=== PATIENT | female | born 1930 ===

== ENCOUNTER 2020-07-08 11:08 | Emergency (ER) | payer MEDICARE, BC ==
--- NOTE | 2020-07-08 13:12 | CT ---
CT BRAIN NONCONTRAST: DATE: 07/08/2020 HISTORY: 89-year-old female status post acute head trauma from fall. FINDINGS: There is no midline shift or any other mass effect. There is no evidence of acute intracranial hemor rhage, large cortical infarct, obstructive hydrocephalus, or extraaxial fluid collection. The calvar ium is intact. There is diffuse parenchymal volume loss. There are low attenuation areas in the whi te matter. These are nonspecific, but in a patient of this age, they are probably chronic ischemic w karthikeyan matter changes due to microvascular atherosclerosis. There are multiple tiny lacunar infarcts in the bilateral deep cerebral white matter, at least most of which are probably old. IMPRESSION: 1. No acute intracranial findings. 2. Involutional changes and chronic ischemic white matter changes. jn [] POS: AH
--- NOTE | 2020-07-08 13:21 | RAD ---
3 VIEWS LEFT WRIST: Date: 07/08/2020 COMPARISON: None. HISTORY: Fall with left wrist pain. FINDINGS: Three views of the left wrist show a fracture of the distal diaphysis of the ulna. No radial fracture is seen. Surrounding soft tissue swelling is seen. Diffuse osteopenia is present. IMPRESSION: Distal ulnar fracture. POS: LOKESHA
--- NOTE | 2020-07-08 13:38 | RAD ---
TWO VIEWS OF THE LEFT FOREARM: 07/08/20 COMPARISON: None. HISTORY: Fall with left arm pain. FINDINGS: Two views of the left forearm shows a fracture of the distal aspect of the diaphysis of the ulna with overlying soft tissue swelling. No fracture of the radius is seen. No dislocation at the wrist or el bow is seen. IMPRESSION: Distal ulna fracture. POS: LOKESHA
[2020-07-08] MEDS ORDERED: Bacitracin 1 PK ONE (13:51)
--- NOTE | 2020-07-08 14:01 | CT ---
CT OF THE CERVICAL SPINE WITHOUT CONTRAST: 07/08/20 HISTORY: Fall with head trauma and neck pain. TECHNIQUE: Multiple contiguous axial images were obtained in a CT of the cervical spine without contrast. Sagitt al and coronal reformats were performed. FINDINGS: There are moderate degenerative changes in the lower cervical spine with intervertebral disc space na rrowing and osteophyte formation. There is slight curvature of the spine secondary to the degenerativ e change. Posterior facet arthrosis is seen in the mid and lower cervical spine. There is no evidence of acute fracture or subluxation of the cervical spine. No prevertebral soft tissue swelling is seen . The posterior facets are well aligned. Normal alignment of the skull base with the cervical spine is seen. The lung apices are unremarkable. Calcifications are seen in the carotid arteries. IMPRESSION: Degenerative changes of the cervical spine without acute osseous abnormality. POS: EAA
[2020-07-08] MEDS ORDERED: Boostrix 0.5 ML (Tdap) VIAL ONE ×2 (14:06→14:24)
== END 2020-07-08 14:15 | disposition home or self-care (01) ==
LOC: ERS 11:08
DX: S52.602A Unspecified fracture of lower end of left ulna, initial encounter for closed fracture (principal); I10 Essential (primary) hypertension; Z79.899 Other long term (current) drug therapy; W19.XXXA Unspecified fall, initial encounter
CPT/HCPCS: 29125; 70450; 72125; 90471; 90715